=== PATIENT | male | born 1940 | race Two or more races ===

== ENCOUNTER 2018-11-13 07:24 | Day surgery (SDC) | payer OTHER ==
[~2018-11-13 07:24] MED LIST: NORVASC5 MG PO
== END 2018-11-13 16:10 | disposition home or self-care (01) ==
LOC: CIR.AMB 07:24 → EDBD 13:45 → CIR.AMB 16:10
DX: M24.542 Contracture, left hand (principal); M20.092 Other deformity of left finger(s)

== ENCOUNTER 2018-11-13 20:49 | Emergency (ER) | payer OTHER ==
[~2018-11-13] VITALS: Ht 167.6 cm; Wt 54.4 kg
== END 2018-11-13 22:09 | disposition home or self-care (01) ==
LOC: ER 20:49
DX: R33.8 Other retention of urine (principal); Z98.890 Other specified postprocedural states